=== PATIENT | female | born 1940 | race Caucasian/White ===

== ENCOUNTER → 2019-04-21 | Outpatient (CLI) | payer MEDICARE ==
[2019-04-21 16:59] LABS: C Reactive Protein 0.6 mg/dL (0.0-0.8)
[2019-04-21 20:29] LABS: Hemoglobin A1C 5.8 % (4.0-6.0)
== END ==
LOC: LABWHC1 08:51
PROVIDERS: ATTEND Psychiatry & Neurology Neurology
DX: Z79.899 Other long term (current) drug therapy (principal); G62.9 Polyneuropathy, unspecified; G72.9 Myopathy, unspecified
CPT/HCPCS: 36415; 82550; 82553; 82607; 83036; 85652; 86140

== ENCOUNTER 2019-05-01 09:27 | Day surgery (SDC) | payer MEDICARE ==
[2019-04-27 10:06] VITALS: BMI 29.2
[~2019-05-01 09:27] MED LIST: LACTATED RINGERS 1,000 ML IV SCH; LIDOCAINE 1% 20 ML VIAL (10MG/ML) FOR IV START INTRADERMA PRN
[2019-05-01 10:49] VITALS: TEMP 98.1
[2019-05-01] MEDS ORDERED: PROPOFOL 10 MG/ML 20 ML VIAL IV ONE (12:04)
[2019-05-01] MEDS ORDERED: GLYCOPYRROLATE 0.2 MG/ML 2 ML VIAL ONE (12:04)
[2019-05-01] MEDS ORDERED: LIDOCAINE 1% INJ 10MG/ML (20 ML MDV) ONE (12:04)
--- NOTE | 2019-05-01 12:35 | P.PCN ---
Date of Procedure: 05/01/19 Procedure(s) Performed: Procedure: Esophagogastroduodenoscopy and biopsy. Preoperative diagnosis: Dysphagia. Postoperative diagnosis: 1. Small sliding hiatal hernia with no obvious esophagitis or complicated reflux disease. 2. Mild antral gastritis. 3. Multiple biopsies obtained from the duodenum, antrum and esophagus. Preparation and sedation: Was provided by anesthesia. Brief clinical history: The patient is a 79-year-old female with history of fibromyalgia and gastroesophageal reflux disease who, apparently, has been troubled with difficulty swallowing for the last 4 or 5 years. Usually, it is for solid food and at times has to bring the food back up. No unintentional weight loss or bleeding or other alarm symptoms. Procedure: With the patient on her left lateral decubitus position and after informed consent and adequate sedation, I passed the Olympus-GIF H190 video upper endoscope through the cricopharyngeus down the esophagus. GE junction was around 36 cm from the incisors and there was a small sliding hiatal hernia but no obvious esophagitis or complicated reflux disease. Specifically, there were no strictures or Obando's esophagus. The endoscope was then passed into the stomach which was insufflated with air and inspected in detail including the retroflex view in the cardia. There was some mottling and erythema in the antrum but no ulcers or erosions. Pyloric channel, duodenal bulb, post bulbar area and descending duodenum appeared within normal limits. Because of her symptoms, I obtained biopsies from the duodenum, antrum and esophagus then the endoscope was withdrawn. The patient tolerated the procedure well. Plan: The patient was reassured. Will await biopsy results. It is likely that we are dealing with a dysmotility condition causing her dysphagia as opposed to inflammatory and stricturing problem, especially in light of history of fibromyalgia. Consideration can be given for further motility testing especially if her symptoms become progressive and if there is nutritional compromise. She will follow-up with you as planned and I will be happy to see in the office if her symptoms persist or change.
[2019-05-01 12:50] VITALS: BP 132/85; PULSE 63; RESP 18
== END 2019-05-01 13:12 | disposition home or self-care (01) ==
LOC: ORWHC2ENDO 09:27
DX: R13.10 Dysphagia, unspecified (principal); K29.50 Unspecified chronic gastritis without bleeding; K44.9 Diaphragmatic hernia without obstruction or gangrene; K21.9 Gastro-esophageal reflux disease without esophagitis; M79.7 Fibromyalgia; I10 Essential (primary) hypertension; E78.5 Hyperlipidemia, unspecified; Z86.718 Personal history of other venous thrombosis and embolism; Z79.1 Long term (current) use of non-steroidal anti-inflammatories (NSAID); Z79.82 Long term (current) use of aspirin; Z79.899 Other long term (current) drug therapy; Z88.3 Allergy status to other anti-infective agents; Z88.5 Allergy status to narcotic agent; Z88.8 Allergy status to other drugs, medicaments and biological substances; Z90.49 Acquired absence of other specified parts of digestive tract; Z90.710 Acquired absence of both cervix and uterus
CPT/HCPCS: 43239; 88305; J2001; J2704

== ENCOUNTER → 2019-05-01 | Outpatient (CLI) | payer MEDICARE ==
--- NOTE | 2019-05-01 09:33 | MR ---
EXAMINATION TYPE: MR lumbar spine wo/w con DATE OF EXAM: 05/01/2019 COMPARISON: 02/05/2010 HISTORY: Radiculopathy, lumbar region TECHNIQUE: T1 and T2 axial and sagittal, postcontrast T1 sagittal and axial images of the lumbar spi ne are submitted. CONTRAST: 7.5 mL Gadavist FINDINGS: There is no abnormal signal seen within the visualized spinal cord or paraspinal soft tissu es. Tiny simple appearing left renal cyst noted. At L1-2 there is no disc herniation or canal stenosis. No foraminal encroachment. Mild hypertrophic c hanges facets. Vertebral body hemangioma of L1. At L2-3 there is there is facet arthropathy and ligamentum flavum hypertrophy. Neural foramina patent . No Canal stenosis. At L3-4 there is facet hypertrophy and ligamentum flavum hypertrophy. No disc herniation or canal tahir nosis. No foraminal encroachment. At L4-5 there is vacuum disc compatible severe degenerative disc disease. There is severe facet arthr opathy. The grade 1 anterolisthesis which is stable from the previous exam. There is moderate to gilma re bilateral foraminal encroachment. Central disc bulging results in central stenosis. Ligamentum fla vum hypertrophy contributes. At L5-S1 there is vacuum disc compatible severe degenerative disc disease. There is facet arthropathy . Moderate to severe bilateral foraminal encroachment. There is a 4 mm rounded area of abnormal signa l adjacent to the exiting left nerve root anterolateral to the thecal sac posterior to the upper ananth in of the S1 vertebral body suspicious for a small sequestered disc fragment. Postsurgical changes ar e noted. IMPRESSION: 1. Significant canal stenosis L4-L5 secondary to severe facet arthropathy and anterolisthesis with bi lateral severe foraminal encroachment. Central disc protrusion or small herniation contributes. 2. Moderate to severe bilateral foraminal encroachment with severe degenerative disc disease L5-S1. P ostsurgical changes are noted. Findings are suspicious for a small sequestered disc fragment measurin g approximately 5 mm anterolateral to the left of the thecal sac and may exert mass effect upon the e xiting left nerve root. 3. Severe degenerative disc disease L4-5 and L5-S1 with vacuum disc. 4. Multilevel facet arthropathy.
== END | disposition home or self-care (01) ==
LOC: RADMRIMAIN 07:41
PROVIDERS: ATTEND Psychiatry & Neurology Neurology
DX: M48.061 Spinal stenosis, lumbar region without neurogenic claudication (principal); M51.26 Other intervertebral disc displacement, lumbar region; M43.16 Spondylolisthesis, lumbar region; M51.16 Intervertebral disc disorders with radiculopathy, lumbar region; M51.37 Other intervertebral disc degeneration, lumbosacral region; M46.96 Unspecified inflammatory spondylopathy, lumbar region; M46.97 Unspecified inflammatory spondylopathy, lumbosacral region
CPT/HCPCS: 72158; A9585

== ENCOUNTER 2019-09-20 11:10 | Day surgery (SDC) | payer MEDICARE ==
[2019-09-19 09:14] VITALS: BMI 29.2
[~2019-09-20 11:10] MED LIST changes: +HYDROmorphone 0.5 MG/0.5 ML SYRINGE IVP PRN; -LIDOCAINE 1% 20 ML VIAL (10MG/ML) FOR IV START INTRADERMA PRN; +ONDANSETRON 4 MG/2 ML VIAL IVP PRN
[2019-09-20] MEDS ORDERED: LIDOCAINE 1% 20 ML VIAL (10MG/ML) FOR IV START INTRADERMA ONE (11:50)
[2019-09-20 12:07] VITALS: RESP 16; TEMP 99
[2019-09-20] MEDS ORDERED: LIDOCAINE 1% INJ 10MG/ML (20 ML MDV) ONE (12:20)
[2019-09-20] MEDS ORDERED: PROPOFOL 10 MG/ML 20 ML VIAL IV ONE (12:20)
--- NOTE | 2019-09-20 12:39 | P.PCN ---
Date of Procedure: 09/20/19 Procedure(s) Performed: BRIEF HISTORY: Patient is a 79-year-old pleasant female scheduled for an elective colonoscopy as a part of value should of Hemoccult-positive stool. Her last colonoscopy was 14 years ago. PROCEDURE PERFORMED: Colonoscopy. PREOPERATIVE DIAGNOSIS: Hemoccult-positive stool. IV sedation per Anesthesia. PROCEDURE: After informed consent was obtained, the patient, was brought into the endoscopy unit. IV sedation was administered by Anesthesia under continuous monitoring. Digital rectal examination was normal. Initially the Olympus CF-160 flexible video colonoscope was then inserted in the rectum, gradually advanced into the cecum without any difficulty. Careful examination was performed as the scope was gradually being withdrawn. Ileocecal valve and the appendiceal orifice were visualized and appeared normal. Prep was excellent. Mucosa of the cecum, ascending colon, transverse colon, descending colon, sigmoid colon, and rectum appeared normal. Retroflexion was performed in the rectum and no lesions were seen. The patient tolerated the procedure well. IMPRESSION: Normal-appearing colon from rectum to cecum with no evidence of colorectal neoplasia. RECOMMENDATIONS: Findings of this examination were discussed with the patient is a family. She was advised to continue with Bentyl as needed.
[2019-09-20 13:25] VITALS: BP 140/76; PULSE 66
== END 2019-09-20 13:10 | disposition home or self-care (01) ==
LOC: ORWHC2ENDO 11:10
PROVIDERS: ATTEND Internal Medicine Gastroenterology
DX: R19.5 Other fecal abnormalities (principal); I10 Essential (primary) hypertension; E78.5 Hyperlipidemia, unspecified; K21.9 Gastro-esophageal reflux disease without esophagitis; M79.7 Fibromyalgia; Z88.5 Allergy status to narcotic agent; Z79.1 Long term (current) use of non-steroidal anti-inflammatories (NSAID); Z79.82 Long term (current) use of aspirin; Z79.899 Other long term (current) drug therapy; Z88.8 Allergy status to other drugs, medicaments and biological substances; Z91.048 Other nonmedicinal substance allergy status; Z86.718 Personal history of other venous thrombosis and embolism
CPT/HCPCS: 45378; J2001; J2704

== ENCOUNTER 2020-05-08 16:23 | Emergency (ER) | payer MEDICARE, OTHER ==
[2020-05-08 16:32] VITALS: RESP 18
[2020-05-08] MEDS ORDERED: LIDOCAINE 1% INJ 10MG/ML (20 ML MDV) SQ ONE (17:04)
--- NOTE | 2020-05-08 17:25 | XR ---
EXAMINATION TYPE: XR forearm LT DATE OF EXAM: 05/08/2020 COMPARISON: NONE HISTORY: Wrist pain TECHNIQUE: 2 views FINDINGS: There is impacted transverse fracture distal radial metaphysis. There is mild anterior angu lation at the fracture site and 5 mm posterior displacement on the lateral view. The elbow joint appe ars intact. Carpal bones are intact. IMPRESSION: Impacted distal radius fracture as above. Possible chip fracture of the ulnar styloid pro cess.
--- NOTE | 2020-05-08 17:26 | XR ---
EXAMINATION TYPE: XR wrist complete LT DATE OF EXAM: 05/08/2020 COMPARISON: NONE HISTORY: Pain. TECHNIQUE: 4 views FINDINGS: There is impacted comminuted transverse fracture distal radial metaphysis. There is anterio r angulation at the fracture site with 5 mm posterior displacement of the distal major fragment. Ther e is no dislocation of the radiocarpal joint. There is nondisplaced fracture ulnar styloid process. IMPRESSION: Acute fractures of the distal radius and ulna as above.
--- NOTE | 2020-05-08 17:31 | ED ---
Upper Extremity HPI - General Source: patient Mode of arrival: ambulatory Limitations: no limitations <Clarissa Nunez - Last Filed: 05/08/20 18:30> <Sixto Samaniego - Last Filed: 05/08/20 18:41> - General Chief Complaint: Extremity Injury, Upper Stated Complaint: L wrist poss break Time Seen by Provider: 05/08/20 16:36 - History of Present Illness Initial Comments: Patient is a 80-year-old female presenting to the emergency Department with complaints of left wrist pain after she fell just prior to arrival. Patient states she was at a patient's home and was getting something out of the freezer when she turned and tripped on the ramp falling forward onto her left wrist. Patient states she did land on her right knee however that is not very painful. She did not hit her head, she did not lose consciousness. Patient states her main complaint is her left wrist pain. She states it did swell up almost im mediately. She is not able to use this. She denies any previous injuries to her wrist. She has no further complaints at this time. (Clarissa Nunez) - Related Data Home Medications Medication Instructions Recorded Confirmed Acetaminophen [Tylenol Extra 1,000 mg PO Q12HR PRN 04/27/19 05/08/20 Strength] Aspirin [Adult Low Dose Aspirin EC] 81 mg PO DAILY 04/27/19 05/08/20 Ergocalciferol (Vitamin D2) 50,000 unit PO CATALAN 04/27/19 05/08/20 [Drisdol] Leg Cramps Otc 2 tab SL Q12HR PRN 04/27/19 05/08/20 Metoprolol Tartrate [Lopressor] 50 mg PO BID 04/27/19 05/08/20 Naproxen Sodium [Aleve] 440 mg PO BID PRN 04/27/19 05/08/20 Rosuvastatin Calcium [Crestor] 5 mg PO HS 04/27/19 05/08/20 Triamterene-Hctz 37.5-25Mg 1 tab PO DAILY 04/27/19 05/08/20 [Maxzide 37.5-25] Gabapentin [Neurontin] 400 mg PO TID PRN 09/19/19 05/08/20 Aspirin [Adult Low Dose Aspirin EC] 81 mg PO DAILY 05/08/20 05/08/20 Dicyclomine [Bentyl] 10 mg PO BID PRN 05/08/20 05/08/20 HYDROcodone/APAP 5-325MG [[place] 1 tab PO TID PRN 05/08/20 05/08/20 5-325] Levothyroxine Sodium 137 mcg PO DAILY 05/08/20 05/08/20 Multivitamins, Thera [Multivitamin 1 tab PO DAILY 05/08/20 05/08/20 (formulary)] Pantoprazole [Protonix] 40 mg PO DAILY 05/08/20 05/08/20 Allergies Allergy/AdvReac Type Severity Reaction Status Date / Time povidone-iodine Allergy Severe CHEMICAL Verified 05/08/20 17:16 [From Betadine] BURN WITH SURGICAL PREP soap [From Betadine] Allergy Severe CHEMICAL Verified 05/08/20 17:16 BURN WITH SURGICAL PREP meclizine [From Antivert] Allergy Unknown DOUBLE Verified 05/08/20 17:16 VISION codeine AdvReac Unknown ITCHING OF Verified 05/08/20 17:16 NOSE Review of Systems ROS Other: All systems not noted in ROS Statement are negative. <Clarissa Nunez - Last Filed: 05/08/20 18:30> ROS Other: All systems not noted in ROS Statement are negative. <Sixto Samaniego - Last Filed: 05/08/20 18:41> ROS Statement: Those systems with pertinent positive or pertinent negative responses have been documented in the HPI. Past Medical History Past Medical History: Deep Vein Thrombosis (DVT), Fibromyalgia, GERD/Reflux, Hyperlipidemia, Hypertension Additional Past Medical History / Comment(s): STATES HX OF GI BLEED FROM RUPTURED POLYP, STATES HX OF DVT LEG AFTER INJURY ., BACK PAIN- STATES UNSTEADY GAIT WITH HX OF FALLS., DYSPHAGIA. HX BLACK TARRY STOOLS History of Any Multi-Drug Resistant Organisms: None Reported Past Surgical History: Back Surgery, Bowel Resection, Cholecystectomy, Hysterectomy, Orthopedic Surgery Additional Past Surgical History / Comment(s): LUMBAR LAMINECTOMY (1980), RIGHT FEMUR FX (2004), ARTHROSCOPY RIGHT KNEE (2006), CATARACTS, CARPAL TUNNEL (1984 &1985)., STATES HX OF BOWEL PROLAPSE AND 6 INCHES OF BOWEL REMOVED . COLONOSCOPY Past Anesthesia/Blood Transfusion Reactions: No Reported Reaction, Motion Sickness Past Psychological History: No Psychological Hx Reported Smoking Status: Never smoker Past Alcohol Use History: None Reported Past Drug Use History: None Reported - Past Family History Brother(s) Additional Family Medical History / Comment(s): CMMA Sister(s) Family Medical History: Cancer Additional Family Medical History / Comment(s): BLADDER CANCER <Clarissa Nunez - Last Filed: 05/08/20 18:30> General Exam Limitations: no limitations <Clarissa Nunez - Last Filed: 05/08/20 18:30> - General Exam Comments Initial Comments: GENERAL: Well-appearing, well-nourished and in no acute distress. HEAD: Atraumatic, normocephalic. EYES: Pupils equal round and reactive to light, extraocular movements intact, sclera anicteric, conjunctiva are normal. ENT: TMs normal, nares patent, oropharynx clear without exudates. Moist mucous membranes. NECK: Normal range of motion, supple without lymphadenopathy or JVD. LUNGS: Breath sounds clear to auscultation bilaterally and equal. No wheezes rales or rhonchi. HEART: Regular rate and rhythm without murmurs, rubs or gallops. ABDOMEN: Soft, nontender, normoactive bowel sounds. No guarding, no rebound. No masses appreciated. : Deferred EXTREMITIES: Left wrist is moderately swollen over the distal radius, obvious deformity in the same area. She is neurovascular intact. She is unable to pronate or supinate. No pain with palpation of the left elbow, left humerus or left shoulder. No clubbing or cyanosis. NEUROLOGICAL: Cranial nerves II through XII grossly intact. Normal speech, normal gait. PSYCH: Normal mood, normal affect. SKIN: Warm, Dry, normal turgor, no rashes or lesions noted. (Clarissa Nunez) Course <Sixto Samaniego - Last Filed: 05/08/20 18:41> Vital Signs 05/08/20 16:30 Temperature 97.5 F L Pulse Rate 79 Respiratory 18 Rate Blood Pressure 133/85 O2 Sat by Pulse 94 L Oximetry - Reevaluation(s) Reevaluation #1: 05/08/20 18:40 PA supervision: I personally evaluate the patient [id number] she had fallen outstretched hand and did develop a distal radius fracture with dorsal displacement. The fracture was reduced using a hematoma block and countertraction pressure. Patient did tolerate this well repeat x-ray shows improvement in the orientation. She did tolerate that well good neurovascular exam afterwards. (Sixto Samaniego) Medical Decision Making <Clarissa Nunez - Last Filed: 05/08/20 18:30> - Medical Decision Making Patient is 80-year-old female here for left wrist pain after falling on a just prior to arrival. She has no other complaints from this fall. On exam she is moderately swollen around the distal radius as well as an obvious deformity. On x-ray reveals an impacted common needed transverse fracture of the distal radius with some mild anterior angulation and posterior displacement. There is a nondisplaced fracture of the STYLOID process. I did do a hematoma block and patient was given pain medicines, I did do a manual reduction of the fracture site. Patient tolerated procedure well. A posterior splint was then applied. Post reduction x-rays reveal a better alignment of the fracture site. Patient is stable for discharge. She will follow up with orthopedics. Patient states she does have [place] pain medicine at home for occasional back pain. I did recommend taking these as needed for severe pain, otherwise she may do ibuprofen or Tylenol. Patient is agreement with this plan of care. Her neighbor is here to drive her home. Return parameters were discussed with the patient and she verbalized understanding. Case discussed with Dr. Samaniego. (Clarissa Nunez) Disposition Is patient prescribed a controlled substance at d/c from ED?: No <Clarissa Nunez - Last Filed: 05/08/20 18:30> <Sixto Samaniego - Last Filed: 05/08/20 18:41> Clinical Impression: Closed fracture of left distal radius and ulna Disposition: HOME SELF-CARE Condition: Stable Instructions (If sedation given, give patient instructions): Wrist Fracture in Adults (ED) Additional Instructions: Please return to the Emergency Department if symptoms worsen or any other concerns. Leave splint in place until follow-up with orthopedics. Elevate and ice the area. May take your [place]'s for severe pain otherwise Tylenol or ibuprofen is okay. Referrals: Sujey Izquierdo MD [Primary Care Provider] - 1-2 days Itz Champion DO [Medical Doctor] - 1-2 days
[2020-05-08] MEDS ORDERED: MORPHINE SULFATE 4 MG/ML SYRINGE IM STA (17:59)
--- NOTE | 2020-05-08 18:36 | XR ---
EXAMINATION TYPE: XR wrist limited LT DATE OF EXAM: 05/08/2020 COMPARISON: 05/08/2020 HISTORY: Wrist pain TECHNIQUE: 2 views FINDINGS: There is transverse fracture distal radial metaphysis. There is ulnar styloid process fract ure. The fragments are in reasonable anatomic position. There is 3 mm posterior displacement of the d istal radius major fragment on the lateral view. There is normal alignment. IMPRESSION: Satisfactory reduction. No complicating process seen.
[2020-05-08 18:51] VITALS: BP 155/65; PULSE 88; TEMP 98.3
== END 2020-05-08 19:05 | disposition home or self-care (01) ==
LOC: EC 16:23
DX: S52.502A Unspecified fracture of the lower end of left radius, initial encounter for closed fracture (principal); S52.612A Displaced fracture of left ulna styloid process, initial encounter for closed fracture; I10 Essential (primary) hypertension; E78.5 Hyperlipidemia, unspecified; K21.9 Gastro-esophageal reflux disease without esophagitis; Z79.82 Long term (current) use of aspirin; Z79.890 Hormone replacement therapy; Z79.899 Other long term (current) drug therapy; Z91.048 Other nonmedicinal substance allergy status; Z88.8 Allergy status to other drugs, medicaments and biological substances; Z88.5 Allergy status to narcotic agent; Z86.718 Personal history of other venous thrombosis and embolism; W01.0XXA Fall on same level from slipping, tripping and stumbling without subsequent striking against object, initial encounter; Y92.009 Unspecified place in unspecified non-institutional (private) residence as the place of occurrence of the external cause
CPT/HCPCS: 73090; 73100; 73110; 99283; 25605; 96372; J2270; J2001

== ENCOUNTER → 2020-08-08 | Outpatient (CLI) | payer MEDICARE ==
--- NOTE | 2020-08-11 14:09 | MM ---
Reason for exam: screening (asymptomatic). Last mammogram was performed 4 years and 1 month ago. History: Patient is postmenopausal and is nulliparous. Family history of breast cancer in maternal aunt at age 70. Benign US left CoreBiopsy of the left breast, August 11, 2006. Took estrogen for 27 years beginning at age 40. Physical Findings: A clinical breast exam by your physician is recommended on an annual basis and results should be correlated with mammographic findings. MG 3D Screening Mammo W/Cad Bilateral CC and MLO view(s) were taken. Prior study comparison: July 21, 2016, bilateral MG 3d screening mammo w/cad. October 17, 2014, bilateral MG screening mammo w CAD. The breast tissue is heterogeneously dense. This may lower the sensitivity of mammography. No significant changes when compared with prior studies. ASSESSMENT: Benign, BI-RAD 2 RECOMMENDATION: Routine screening mammogram of both breasts in 1 year.
--- NOTE | 2020-08-11 14:20 | BD ---
EXAMINATION TYPE: Axial Bone Density DATE OF EXAM: 08/08/2020 COMPARISON: 07.21.2016 CLINICAL HISTORY: 80 YR OLD FEMALE.....ICD-10 CODE: M1.0 OSTEOPOROSIS Height: 61.3 Weight: 163 FRAX RISK QUESTIONS: History of Fracture in Adulthood: YES Secondary Osteoporosis: YES 3. Menopause before 45: YES AT 40 YRS OLD RISK FACTORS HISTORY OF: Hip Fracture RT FEMUR FX....WITH PLATING AND SCREWS..2004 Spine Fracture: LAMINECTOMY LOWER BACK...1979 History of Wrist Fracture: YES, LEFT 2019 Surgery to Spine AND RT FEMUR, 1979 FOR SPINE, AND 2004 FOR FEMUR Postmenopausal woman: YES, AT 40 YRS OLD Take estrogen and/or progesterone medications: YES How long: FOR MANY YRS, NOT NOW THOUGH Lost more than 2 inches in height since high school: YES Frequent falls: ELDERLY, AND FXS Hyperparathyroidism: NO Adrenal Insufficiency: NO MEDICATIONS: Thyroid Medications: YES, SYNTHROID FOR ABOUT 15 YRS Additional Medications: BP MEDS, PROTONIX, TUMS, STATIN FOR CHOLESTEROL, VIT D, CIPRO WITH CA, Additional History: HYPERTENSION, CHOLESTEROL, REFLUX EXAM MEASUREMENTS: Bone mineral densitometry was performed using the [employer] System. HX OF LUMBAR LAMINECTOMIES.....SPINE NOT SCANNED Bone mineral density about the R hip (g/cm2): 0.707 Bone mineral density about the L hip (g/cm2): 0.751 T Score values are as follows: -----R Neck: -2.4 -----L Neck: -2.2 -----R Total: -2.4 -----L Total: -2.0 Bone mineral density has: Decreased -5.0% since study of: 07.21.2016 FRAX%s: THERE IS A 25.1%CHANCE FOR A MAJOR OSTEOPOROTIC FX AND A 7.7% FOR HIP.....PROBABILITY FOR F X IN 10 YRS TIME Bone mineral density about the R Wrist (g/cm2): 0.461 T Score values are as follows: -----Dist. R+U: -2.7 -----Prox. R+U: -2.1 -----Radius total: -3.0 Bone mineral density THIS IS THE FIRST WRIST SCAN FOR THIS PATIENT IMPRESSION: Osteoporosis (T Score less than -2.5). There is increased fracture risk and therapy is usually indicated based on age. Re-Screen 1-2 years. NOTE: T-SCORE=SD OF THE YOUNG ADULT MEAN.
== END | disposition home or self-care (01) ==
LOC: RADBDWWP 11:46
PROVIDERS: ATTEND Internal Medicine
DX: Z12.31 Encounter for screening mammogram for malignant neoplasm of breast (principal); M81.0 Age-related osteoporosis without current pathological fracture
CPT/HCPCS: 77063; 77067; 77080

== ENCOUNTER → 2022-05-28 | Outpatient (CLI) | payer MEDICARE ==
--- NOTE | 2022-05-28 11:35 | US ---
EXAMINATION TYPE: US venous doppler duplex LE LT DATE OF EXAM: 05/28/2022 11:07 AM COMPARISON: NONE CLINICAL HISTORY: M79.662 PAIN IN LT LOWER LIMB. edema pain SIDE PERFORMED: Left TECHNIQUE: The lower extremity deep venous system is examined utilizing real time linear array sonog teri with graded compression, doppler sonography and color-flow sonography. VESSELS IMAGED: Common Femoral Vein Deep Femoral Vein Greater Saphenous Vein * Femoral Vein Popliteal Vein Small Saphenous Vein * Proximal Calf Veins (* superficial vessels) Left Leg: Negative for DVT Grayscale, color doppler, spectral doppler imaging performed of the deep veins of the left lower extr emity. There is normal flow, compressibility, vascular waveforms. IMPRESSION: No ultrasound evidence for acute DVT in the left lower extremity.
== END | disposition home or self-care (01) ==
LOC: RADUSWWP 10:41
PROVIDERS: ATTEND Internal Medicine
DX: M79.662 Pain in left lower leg (principal)